=== PATIENT | female | born 1975 | race Caucasian/White ===

== ENCOUNTER 2022-01-08 17:36 | Emergency (ER) | payer BC, SELFPAY ==
[2022-01-08 17:44] VITALS: BP 162/78; PULSE 65; RESP 18; TEMP 36.8; O2SAT 100
--- NOTE | 2022-01-08 18:00 | ED.SKABFB ---
HPI - Skin/Abscess/Foreign Bdy General Chief complaint: Skin/Abscess/Foreign Body Stated complaint: Skin Sore/Thumb Time Seen by Provider: 01/08/22 17:50 Source: patient and RN notes reviewed Mode of arrival: ambulatory Limitations: no limitations History of Present Illness HPI narrative: 46-year-old female presents with concern for swelling, pain to the distal first digit of the left hand. Reports the area started at the edge of the nailbed. Reports she has been soaking it in warm water without relief. Reports the symptoms are worsening, spreading. She denies fever, bodies, chills, sweats. Denies drainage. complaint: rash Related Data Allergies Allergy/AdvReac Type Severity Reaction Status Date / Time No Known Allergies Allergy Verified 01/08/22 17:57 Review of Systems Review of Systems: CONSTITUTIONAL: Denies malaise, chills, sweats, or fever. SKIN: Reports redness, tenderness, swelling to the first digit of the left hand, distal near the nailbed MUSCULOSKELETAL: Denies joint pain or myalgia. All systems reviewed & are unremarkable except as noted in HPI and below PMFSH Comments At time of signature, agree with nursing past medical, surgical, social and family history. There is no relevant family history pertinent to the presenting complaint Exam Narrative: GENERAL: Well-appearing, well-nourished, and in no acute distress. HEAD: Normocephalic EYES: PERRLA, conjunctivae clear ENT: Mucous membranes moist. NECK: Supple. No lymphadenopathy CHEST: Clear to auscultation. No respiratory distress. HEART: Regular rate and rhythm. SKIN: Warm, dry. Lateral edge of the first digit of the left hand near the nailbed erythematous, edematous, tender, erythema and edema extend to the palmar aspect of the distal tip of the digit. No fluctuation is noted on the palmar or dorsal aspect. NEURO: Alert and oriented x3. PSYCH: Normal mood and affect Course Course Emergency Course: Discussed with patient that if purulent infection occurs on the palmar aspect of the digit treatment by a specialist with drainage is often necessary. At this time there is no fluctuant area that is noted for drainage. Patient is aware of diagnosis, understands and agrees to treatment plan. Anticipatory guidance given. Patient agrees to follow-up as directed and is aware of reasons to seek care at the emergency department. Portions of this record may have been created with voice recognition software Level of Care: Express Care Visit Vital Signs Vital signs: Vital Signs Temperature 98.2 F 01/08/22 17:44 Pulse Rate 65 01/08/22 17:44 Respiratory Rate 18 01/08/22 17:44 Blood Pressure 162/78 H 01/08/22 17:44 Pulse Oximetry 100 01/08/22 17:44 Oxygen Delivery Room Air 01/08/22 17:44 Temperature 98.2 F 01/08/22 17:44 Pulse Rate 65 01/08/22 17:44 Respiratory Rate 18 01/08/22 17:44 Blood Pressure 162/78 H 01/08/22 17:44 Pulse Oximetry 100 01/08/22 17:44 Oxygen Delivery Room Air 01/08/22 17:44 Reviewed. MDM - Skin/Abscess/Foreign Bdy MDM Narrative Medical decision making narrative: Exam findings show no acute concerns or changes; patient is non-toxic appearing and is in no distress. Patient is appropriate for outpatient treatment and follow-up. Differential Diagnosis Differential diagnosis: Likely cellulitis and other (Paronychia, musculoskeletal injury) Critical Care Time Critical Care Time Critical Care Time: No Discharge Plan Discharge Clinical Impression: Paronychia Patient Disposition: Home, Self-Care Condition: Stable Instructions: Antibiotic Form, Paronychia (ED) Additional Instructions: Soak your nail: Soak your nail in a mixture of equal parts vinegar and water 3 or 4 times each day. This will help decrease inflammation. Apply a warm compress: Soak a washcloth in warm water and place it on your nail. This will help decrease inflammation. Elevate: Raise your nail above the level
== END 2022-01-08 18:21 | disposition home or self-care (01) ==
PROVIDERS: Emergency Provider Nurse Practitioner
DX: L03.012 Cellulitis of left finger (principal)
CPT/HCPCS: 99213; G0463